=== PATIENT | male | born 1995 | race Caucasian/White ===

== ENCOUNTER 2017-09-09 16:56 | Emergency (ER) | payer OTHER ==
[~2017-09-09] VITALS: Ht 172.7 cm; Wt 66.9 kg
[2017-09-09 17:03] VITALS: TEMP 36.9; Ht 172.7 cm; Wt 66.9 kg
[2017-09-09] MEDS ORDERED: ONDANSETRON INJ 2 MG/ML 2 ML VIAL IV STA (17:13)
[2017-09-09] MEDS ORDERED: KETOROLAC TROMETHAMINE 30 MG/ML VIAL IV STA (17:13)
[2017-09-09] MEDS ORDERED: SODIUM CHLORIDE 0.9% 1000ML 2,000 ML IV STA (17:13)
--- NOTE | 2017-09-09 17:46 | DIAGNOSTIC IMAGING REPORT ---
CHEST ONE VIEW PORTABLE HISTORY: 22 years-old Male cough acute cough COMPARISON: None available TECHNIQUE: Portable upright AP view of the chest FINDINGS: Cardiomediastinal and hilar silhouettes are within normal limits. No pneumothorax, pleural effusion, focal airspace consolidation or overt pulmonary edema. Bones of the chest are grossly intact. IMPRESSION: No acute cardiopulmonary process. The above report was generated using voice recognition software. It may contain grammatical, syntax or spelling errors. Electronically signed by: Tunde Mcpherson M.D. 09/09/2017 5:45 PM Dictated Date/Time: 09/09/2017 5:44 PM
[2017-09-09 17:56] LABS: BASO % 0.6 %; BASO ABS # 0.05 K/uL (0-0.2); COMPLETE YES; EOS % 3.8 %; HEMATOCRIT 42.8 % (42-52); IG% 0.1 %; LYMPH % 30.8 %; LYMPH ABS # 2.68 K/uL (1.2-3.4); MEAN CELL VOLUME 86.5 fL (80-100); MEAN CORPUSCULAR HEMOGLOBIN 30.3 pg (25-34); MEAN PLATELET VOLUME 10.6 fL (7.4-10.4); NEUT % 57.7 %; PLATELET COUNT 305 K/uL (130-400); RED BLOOD COUNT 4.95 M/uL (4.7-6.1)
[2017-09-09 18:15] LABS: BUN/CREATININE RATIO 7.2 (10-20); CALCIUM 9.7 mg/dl (8.5-10.1); CREATININE 0.97 mg/dl (0.60-1.40); POTASSIUM 3.7 mmol/L (3.5-5.1)
[2017-09-09 19:09] LABS: URINE APPEARANCE CLEAR (CLEAR); URINE BILIRUBIN NEG (NEG); URINE COLOR YELLOW; URINE EPITHELIAL CELL AUTO 0-5 /lpf (0-5); URINE NITRITE NEG (NEG); URINE SPECIFIC GRAVITY 1.017 (1.000-1.030); UROBILINOGEN NEG (NEG); ZZUR CULT IF INDIC CLEAN CATCH NO
[2017-09-09 19:33] LABS: MANUAL MICROSCOPIC REQUIRED? NO; REVIEW REQ? NO
[2017-09-09] MEDS ORDERED: ONDA4TAB65 PO (19:40)
[2017-09-09] MEDS ORDERED: FAMO20TA11 PO (19:43)
[2017-09-09 19:47] VITALS: BP 113/73; PULSE 60; O2SAT 100
--- NOTE | 2017-09-09 21:58 | EMERGENCY ROOM VISIT NOTE ---
History Report prepared by Yuriibjoselito: Víctor Triana Under the Supervision of: Dr. Kareem Keller D.O. First contact with patient: 17:06 Chief Complaint: FEVER Stated Complaint: CHILLS, FEVER, VOMITING, COLD History of Present Illness The patient is a 22 year old male who presents to the Emergency Room with complaints of persistent generalized illness beginning three days ago. He also complains of vomiting, chills, sinus congestion, sore throat, cough and fevers. He states that he has a history of problems with stomach ulcers, and has noticed flecks of blood in his vomit. The patient's symptoms began with a cough. His cough produces a yellow sputum. He states that his vomiting always occurs with coughing fits. The patient states that he has vomited three times total, twice in the mornings and once after a coughing fit. He states that he has had a lot of post-nasal drip. He denies any urinary symptoms. Source of History: patient Onset: Three days ago Position: other (generalized) Quality: other (illness) Timing: other (persistent) Associated Symptoms: + fevers, + chills, + cough, + vomiting, No urinary symptoms Note: Additional symptoms: sinus congestion. Review of Systems See HPI for pertinent positives & negatives. A total of 10 systems reviewed and were otherwise negative. Past Medical & Surgical Medical Problems: (1) No Known Active Medical Problems (2) Stomach ulcer Family History No pertinent family history stated. Social History Smoking Status: Current Every Day Smoker Occupation Status: [employer] student Current/Historical Medications Scheduled Famotidine (Pepcid), 20 MG PO DAILY Scheduled PRN Ondansetron Hcl (Zofran), 4 MG PO TID PRN for Nausea Allergies Coded Allergies: No Known Allergies (Unverified , 08/22/16) Physical Exam Vital Signs Date Time Temp Pulse Resp B/P (MAP) Pulse Ox O2 Delivery O2 Flow Rate FiO2 09/09/17 19:47 60 20 113/73 100 09/09/17 18:32 57 18 99/66 100 Room Air 09/09/17 17:03 36.9 127 18 125/78 100 Room Air Physical Exam GENERAL: Sitting up in bed, alert, disheveled, slightly ill appearing. EYE EXAM: normal conjunctiva. OROPHARYNX: no exudate, no erythema, lips, buccal mucosa, and tongue normal and mucous membranes are moist EARS: Bilateral cerumen impactions. NECK: supple, no nuchal rigidity, no adenopathy, non-tender. Negative Brudzinski. LUNGS: Clear to auscultation. Normal chest wall mechanics HEART: no murmurs, S1 normal and S2 normal ABDOMEN: abdomen soft, non-tender, normo-active bowel sounds, no masses, no rebound or guarding. BACK: Back is symmetrical on inspection and there is no deformity, no midline tenderness, no CVA tenderness. SKIN: no rashes and no bruising UPPER EXTREMITIES: upper extremities are grossly normal. LOWER EXTREMITIES: No pitting edema. NEURO EXAM: Normal sensorium, cranial nerves II-XII grossly intact, normal speech, no gross weakness of arms, no gross weakness of legs. Medical Decision & Procedures ER Provider Diagnostic Interpretation: Radiology results as stated below per my review and the radiologist's interpretation: CHEST ONE VIEW PORTABLE FINDINGS: Cardiomediastinal and hilar silhouettes are within normal limits. No pneumothorax, pleural effusion, focal airspace consolidation or overt pulmonary edema. Bones of the chest are grossly intact. IMPRESSION: No acute cardiopulmonary process. The above report was generated using voice recognition software. It may contain grammatical, syntax or spelling errors. Electronically signed by: Tunde Mcpherson M.D. 09/09/2017 5:45 PM Laboratory Results 09/09/17 17:28 Red Blood Count 4.95, Mean Corpuscular Volume 86.5, Mean Corpuscular Hemoglobin 30.3, Mean Corpuscular Hemoglobin Concent 35.0, Mean Platelet Volume 10.6, Neutrophils (%) (Auto) 57.7, Lymphocytes (%) (Auto) 30.8, Monocytes (%) (Auto) 7.0, Eosinophils (%) (Auto) 3.8, Basophils (%) (Auto) 0.6, Neutrophils # (Auto) 5.02, Lymphocytes # (Auto) 2.68, Monocytes # (Auto) 0.61, Eosinophils # (Auto) 0.33, Basophils # (Auto) 0.05 09/09/17 17:28 Test 09/09/17 17:28 09/09/17 17:29 09/09/17 18:30 White Blood Count 8.70 K/uL (4.8-10.8) Red Blood Count 4.95 M/uL (4.7-6.1) Hemoglobin 15.0 g/dL (14.0-18.0) Hematocrit 42.8 % (42-52) Mean Corpuscular Volume 86.5 fL (80-100) Mean Corpuscular Hemoglobin 30.3 pg (25-34) Mean Corpuscular Hemoglobin Concent 35.0 g/dl (32-36) Platelet Count 305 K/uL (130-400) Mean Platelet Volume 10.6 fL (7.4-10.4) Neutrophils (%) (Auto) 57.7 % Lymphocytes (%) (Auto) 30.8 % Monocytes (%) (Auto) 7.0 % Eosinophils (%) (Auto) 3.8 % Basophils (%) (Auto) 0.6 % Neutrophils # (Auto) 5.02 K/uL (1.4-6.5) Lymphocytes # (Auto) 2.68 K/uL (1.2-3.4) Monocytes # (Auto) 0.61 K/uL (0.11-0.59) Eosinophils # (Auto) 0.33 K/uL (0-0.5) Basophils # (Auto) 0.05 K/uL (0-0.2) RDW Standard Deviation 39.9 fL (36.4-46.3) RDW Coefficient of Variation 12.6 % (11.5-14.5) Immature Granulocyte % (Auto) 0.1 % Immature Granulocyte # (Auto) 0.01 K/uL (0.00-0.02) Anion Gap 9.0 mmol/L (3-11) Est Creatinine Clear Calc Drug Dose 114.0 ml/min Estimated GFR () 128.8 Estimated GFR (Non- 111.1 BUN/Creatinine Ratio 7.2 (10-20) Calcium Level 9.7 mg/dl (8.5-10.1) Total Bilirubin 0.5 mg/dl (0.2-1) Direct Bilirubin 0.1 mg/dl (0-0.2) Aspartate Amino Transf (AST/SGOT) 11 U/L (15-37) Alanine Aminotransferase (ALT/SGPT) 11 U/L (12-78) Alkaline Phosphatase 41 U/L (45-117) Total Protein 8.3 gm/dl (6.4-8.2) Albumin 4.7 gm/dl (3.4-5.0) Lipase 95 U/L (73-393) Influenza Type A Antigen Neg for Influ A (NEG) Influenza Type B Antigen Neg for Influ B (NEG) Urine Color YELLOW Urine Appearance CLEAR (CLEAR) Urine pH 7.0 (4.5-7.5) Urine Specific [place] 1.017 (1.000-1.030) Urine Protein NEG (NEG) Urine Glucose (UA) NEG (NEG) Urine Ketones NEG (NEG) Urine Occult Blood NEG (NEG) Urine Nitrite NEG (NEG) Urine Bilirubin NEG (NEG) Urine Urobilinogen NEG (NEG) Urine Leukocyte Esterase NEG (NEG) Urine WBC (Auto) 0 /hpf (0-5) Urine RBC (Auto) 0-4 /hpf (0-4) Urine Hyaline Casts (Auto) 1-5 /lpf (0-5) Urine Epithelial Cells (Auto) 0-5 /lpf (0-5) Urine Bacteria (Auto) NEG (NEG) Laboratory results per my review. Medications Administered Medications (Trade) Dose Ordered Sig/Nerissa Route Start Time Stop Time Status Last Admin Dose Admin Sodium Chloride 2,000 ml @ 999 mls/hr Q2H1M STAT IV 09/09/17 17:13 09/09/17 19:13 DC 09/09/17 17:32 999 MLS/HR Ondansetron HCl (Zofran Inj) 4 mg NOW STAT IV 09/09/17 17:13 09/09/17 17:15 DC 09/09/17 17:32 4 MG Ketorolac Tromethamine (Toradol Inj) 30 mg NOW STAT IV 09/09/17 17:13 09/09/17 17:15 DC 09/09/17 17:32 30 MG ED Course ED COURSE: Vital signs were reviewed and showed tachycardia The patients medical record was reviewed The above diagnostic studies were performed and reviewed. ED treatments and interventions as stated above. 1707: The patient was evaluated in room C5. A complete history and physical examination was performed. 1713: Ordered Toradol Inj 30 mg IV, Zofran Inj 4 mg IV, Sodium Chloride 2000 ml @ 999 mls/hr IV. 5: Upon reevaluation, the patient is resting comfortably. I discussed my findings with the patient and he understands and agrees with the treatment plan. Based on the patients age, coexisting illnesses, exam and lab findings the decision to treat as an outpatient was made. The patient remained stable while under my care. The patient appeared well at the time of discharge. Medical Decision Differential diagnosis: Etiologies such as viral syndrome, otitis, pharyngitis, pneumonia, influenza, meningitis, urinary tract infection, sepsis, bacteremia, as well as others were entertained. Patient is a 22-year-old male who presents to ER for vomiting for a total of 3 times. Yesterday and this morning he threw up when he woke up. Today in the afternoon he vomited after coughing fit. He notes that there was some flecks of blood in this. He complains of congestion and a cough. He also admits to a sore throat. Rapid strep was negative. Symptoms do appear to be consistent with a viral URI. CBC along with BMP, LFTs, bilirubin and lipase were unremarkable. His exam was otherwise unremarkable. His x-ray shows no focal infiltrate. His abdominal exam is completely benign. Patient was updated at bedside. He was discharged with Pepcid and Zofran to follow-up with his PCP. Discussed with Pt concerning signs and symptoms to watch out for. Pt was instructed to follow up with their PCP and discussed with the patient their option to return to the ED at anytime for persistent or worsening symptoms. The appropriate anticipatory guidance and out-patient management, including indications for return to the emergency department, were explained at length to the patient and understood. Medication Reconcilliation Current Medication List: was personally reviewed by me Blood Pressure Screening Patient's blood pressure: Normal blood pressure Blood pressure disposition: Did not require urgent referral Impression Primary Impression: Viral URI with cough Additional Impression: Vomiting Scribe Attestation The scribe's documentation has been prepared under my direction and personally reviewed by me in its entirety. I confirm that the note above accurately reflects all work, treatment, procedures, and medical decision making performed by me. Departure Information Dispostion Home / Self-Care Prescriptions Famotidine (Pepcid) 20 Mg Tab 20 MG PO DAILY, #30 TAB Prov: Kareem Keller, DO 09/09/17 Ondansetron Hcl (ZOFRAN) 4 Mg Tab 4 MG PO TID Y for Nausea, #20 TAB Prov: Kareem Keller, DO 09/09/17 Referrals No Doctor, Assigned (PCP) Forms HOME CARE DOCUMENTATION FORM, IMPORTANT VISIT INFORMATION Patient Instructions ED Nausea Vomiting, ED URI Viral, My [facility] Additional Instructions Please follow up with your primary care doctor or if you are a student, [facility] with in the next 24 hours. Any worsening of your symptoms, please return to the ED immediately. This includes any fevers greater than 100.4, worsening pain, chest pain, shortness breath, persistent nausea, vomiting, unable to eat or drink, or any other concerning signs or symptoms from your standpoint. Please take Zofran as needed for nausea. Please take Pepcid as prescribed. Any increased blood in vomit, dark tarry stools, blood in your stool please return immediately to the ER. Problem Qualifiers Additional Impression: Vomiting Vomiting type: unspecified Vomiting Intractability: non-intractable Nausea presence: with nausea Qualified Codes: R11.2 - Nausea with vomiting, unspecified
== END 2017-09-09 19:52 | disposition home or self-care (01) ==
LOC: C.EDB 16:57 → C.EDC 19:52
DX: J06.9 Acute upper respiratory infection, unspecified (principal); K25.9 Gastric ulcer, unspecified as acute or chronic, without hemorrhage or perforation; F17.200 Nicotine dependence, unspecified, uncomplicated

== ENCOUNTER 2018-02-27 21:07 | Emergency (ER) | payer OTHER ==
[~2018-02-27] VITALS: Ht 172.7 cm; Wt 70.9 kg
[~2018-02-27 21:07] MED LIST: FAMO20TA11 PO
[2018-02-27 21:15] VITALS: TEMP 36.7; Ht 172.7 cm; Wt 70.9 kg
[2018-02-27] MEDS ORDERED: KETOROLAC TROMETHAMINE 30 MG/ML VIAL IV STA (21:43)
[2018-02-27] MEDS ORDERED: ACETAMINOPHEN 500 MG TAB PO STA (21:43)
[2018-02-27] MEDS ORDERED: ONDANSETRON INJ 2 MG/ML 2 ML VIAL IV STA (21:43)
[2018-02-27] MEDS ORDERED: SODIUM CHLORIDE 0.9% 1000ML 1,000 ML IV STA (21:43)
[2018-02-27 22:14] LABS: BASO % 0.4 %; BASO ABS # 0.03 K/uL (0-0.2); EOS % 4.8 %; EOS ABS # 0.35 K/uL (0-0.5); HEMOGLOBIN 15.2 g/dL (14.0-18.0); IG# 0.02 K/uL (0.00-0.02); LYMPH % 32.1 %; LYMPH ABS # 2.32 K/uL (1.2-3.4); MEAN CELL VOLUME 86.3 fL (80-100); MEAN CORPUSCULAR HEMOGLOBIN 30.5 pg (25-34); MEAN CORPUSCULAR HGB CONC 35.3 g/dl (32-36); MEAN PLATELET VOLUME 9.9 fL (7.4-10.4); MONO % 7.3 %; MONO ABS # 0.53 K/uL (0.11-0.59); NEUT % 55.1 %; NEUT ABS # 3.97 K/uL (1.4-6.5); PLATELET COUNT 296 K/uL (130-400); RED CELL DISTRIBUTION WIDTH CV 13.3 % (11.5-14.5); RED CELL DISTRIBUTION WIDTH SD 41.8 fL (36.4-46.3); WHITE BLOOD COUNT 7.22 K/uL (4.8-10.8)
[2018-02-27 22:23] LABS: ALBUMIN 4.8 gm/dl (3.4-5.0); CALCIUM 9.2 mg/dl (8.5-10.1); CREATININE 1.05 mg/dl (0.60-1.40); POTASSIUM 3.5 mmol/L (3.5-5.1)
[2018-02-27 22:25] LABS: TOTAL PROTEIN 8.5 gm/dl (6.4-8.2)
--- NOTE | 2018-02-27 22:46 | DIAGNOSTIC IMAGING REPORT ---
CHEST AND ABDOMEN 2 VIEWS HISTORY: Generalized abdominal pain. COMPARISON: Chest 09/09/2017. FINDINGS: The lungs are clear. The cardiomediastinal silhouette is within normal limits. There is no pneumoperitoneum or pneumatosis. The bowel gas pattern is unremarkable. No evidence for bowel obstruction. No renal or ureteral calculi. Calcifications in the deep pelvis are consistent with phleboliths. Small amount of well-formed stool seen throughout the colon.. IMPRESSION: No acute cardiopulmonary process. No evidence for bowel obstruction. Electronically signed by: Corey Valdez M.D. 02/27/2018 10:45 PM Dictated Date/Time: 02/27/2018 10:43 PM
--- NOTE | 2018-02-27 23:17 | EMERGENCY ROOM VISIT NOTE ---
History Report prepared by Monse: Tangela Smith Under the Supervision of: Dr. Rolando Hoffman M.D. First contact with patient: 21:20 Chief Complaint: ABDOMINAL PAIN Stated Complaint: LEFT ABDOMEN/CHEST PAIN (ON TOUCH) History of Present Illness The patient is a 22 year old male with no past medical history who presents to the ED with a cc of worsening abdominal pain beginning this morning. The patient states that he woke up with the pain and it is sharp. He notes that it is worse when he walks and when he takes a deep breath. Positive pain radiating to his back and long traveling a month ago. The patient states that he went to [place] and then [place] the weekend after. Negative coughing up blood, nausea, vomiting, urinary symptoms, diarrhea, leg swelling, use of drugs, taking anything for pain, and history of DVT or PE. Source of History: patient Onset: this morning Position: abdomen Quality: sharp Timing: worsening Modifying Factors (Worsening): breathing (deep), other (walking) Associated Symptoms: + back pain, No nausea, No vomiting, No diarrhea, No urinary symptoms Note: The patient denies coughing up blood and leg swelling. Review of Systems See HPI for pertinent positives and negatives. A total of ten systems were reviewed and were otherwise negative. Past Medical & Surgical Medical Problems: (1) No Known Active Medical Problems (2) Stomach ulcer Family History Patient reports no known family medical history. Social History Smoking Status: Former Smoker Alcohol Use: occasionally Drug Use: none Marital Status: in relationship Housing Status: lives with significant other Occupation Status: [employer] student Current/Historical Medications No Active Prescriptions or Reported Meds Allergies Coded Allergies: No Known Allergies (Unverified , 08/22/16) Physical Exam Vital Signs Date Time Temp Pulse Resp B/P (MAP) Pulse Ox O2 Delivery O2 Flow Rate FiO2 02/28/18 00:09 75 16 105/67 99 Room Air 02/27/18 22:44 74 16 128/72 100 Room Air 02/27/18 21:15 36.7 84 16 100 Room Air Physical Exam GENERAL: Awake, alert, well-appearing, NAD HENT: Normocephalic, atraumatic. EYES: Normal conjunctiva. Sclera non-icteric. NECK: Supple. No nuchal rigidity. FROM. RESPIRATORY: CTAB, no rhonchi, wheezing, crackles CARDIAC: RRR, no MRG ABDOMEN: Soft, nondistended, BS+, some LUQ pain. No RUQ or RLQ pain. MSK: Reproducible left anterior lower chest pain, no LE edema, no CVA tenderness. NEURO: GCS 15, CN 2-12 intact, moves all 4s on command SKIN: No rash or jaundice noted. Medical Decision & Procedures ER Provider Diagnostic Interpretation: Radiology results as stated below per my review and radiologist interpretation: CHEST AND ABDOMEN 2 VIEWS HISTORY: Generalized abdominal pain. COMPARISON: Chest 09/09/2017. FINDINGS: The lungs are clear. The cardiomediastinal silhouette is within normal limits. There is no pneumoperitoneum or pneumatosis. The bowel gas pattern is unremarkable. No evidence for bowel obstruction. No renal or ureteral calculi. Calcifications in the deep pelvis are consistent with phleboliths. Small amount of well-formed stool seen throughout the colon.. IMPRESSION: No acute cardiopulmonary process. No evidence for bowel obstruction. Electronically signed by: Corey Valdez M.D. 02/27/2018 10:45 PM Dictated Date/Time: 02/27/2018 10:43 PM Laboratory Results 02/27/18 21:25 Red Blood Count 4.98, Mean Corpuscular Volume 86.3, Mean Corpuscular Hemoglobin 30.5, Mean Corpuscular Hemoglobin Concent 35.3, Mean Platelet Volume 9.9, Neutrophils (%) (Auto) 55.1, Lymphocytes (%) (Auto) 32.1, Monocytes (%) (Auto) 7.3, Eosinophils (%) (Auto) 4.8, Basophils (%) (Auto) 0.4, Neutrophils # (Auto) 3.97, Lymphocytes # (Auto) 2.32, Monocytes # (Auto) 0.53, Eosinophils # (Auto) 0.35, Basophils # (Auto) 0.03 02/27/18 21:25 Test 02/27/18 21:25 02/27/18 23:00 White Blood Count 7.22 K/uL (4.8-10.8) Red Blood Count 4.98 M/uL (4.7-6.1) Hemoglobin 15.2 g/dL (14.0-18.0) Hematocrit 43.0 % (42-52) Mean Corpuscular Volume 86.3 fL (80-100) Mean Corpuscular Hemoglobin 30.5 pg (25-34) Mean Corpuscular Hemoglobin Concent 35.3 g/dl (32-36) Platelet Count 296 K/uL (130-400) Mean Platelet Volume 9.9 fL (7.4-10.4) Neutrophils (%) (Auto) 55.1 % Lymphocytes (%) (Auto) 32.1 % Monocytes (%) (Auto) 7.3 % Eosinophils (%) (Auto) 4.8 % Basophils (%) (Auto) 0.4 % Neutrophils # (Auto) 3.97 K/uL (1.4-6.5) Lymphocytes # (Auto) 2.32 K/uL (1.2-3.4) Monocytes # (Auto) 0.53 K/uL (0.11-0.59) Eosinophils # (Auto) 0.35 K/uL (0-0.5) Basophils # (Auto) 0.03 K/uL (0-0.2) RDW Standard Deviation 41.8 fL (36.4-46.3) RDW Coefficient of Variation 13.3 % (11.5-14.5) Immature Granulocyte % (Auto) 0.3 % Immature Granulocyte # (Auto) 0.02 K/uL (0.00-0.02) Anion Gap 6.0 mmol/L (3-11) Est Creatinine Clear Calc Drug Dose 107.6 ml/min Estimated GFR () 117.0 Estimated GFR (Non- 101.0 BUN/Creatinine Ratio 12.9 (10-20) Calcium Level 9.2 mg/dl (8.5-10.1) Total Bilirubin 0.7 mg/dl (0.2-1) Direct Bilirubin 0.2 mg/dl (0-0.2) Aspartate Amino Transf (AST/SGOT) 15 U/L (15-37) Alanine Aminotransferase (ALT/SGPT) 26 U/L (12-78) Alkaline Phosphatase 48 U/L (45-117) Total Protein 8.5 gm/dl (6.4-8.2) Albumin 4.8 gm/dl (3.4-5.0) Lipase 85 U/L (73-393) Urine Color YELLOW Urine Appearance CLEAR (CLEAR) Urine pH 5.0 (4.5-7.5) Urine Specific [place] 1.018 (1.000-1.030) Urine Protein NEG (NEG) Urine Glucose (UA) NEG (NEG) Urine Ketones NEG (NEG) Urine Occult Blood NEG (NEG) Urine Nitrite NEG (NEG) Urine Bilirubin NEG (NEG) Urine Urobilinogen NEG (NEG) Urine Leukocyte Esterase TRACE (NEG) Urine WBC (Auto) 1-5 /hpf (0-5) Urine RBC (Auto) 0-4 /hpf (0-4) Urine Hyaline Casts (Auto) 0 /lpf (0-5) Urine Epithelial Cells (Auto) 0-5 /lpf (0-5) Urine Bacteria (Auto) NEG (NEG) Laboratory results reviewed by me Medications Administered Medications (Trade) Dose Ordered Sig/Nerissa Route Start Time Stop Time Status Last Admin Dose Admin Sodium Chloride 1,000 ml @ 999 mls/hr Q1H1M STAT IV 02/27/18 21:43 02/27/18 22:43 DC 02/27/18 21:53 999 MLS/HR Ondansetron HCl (Zofran Inj) 4 mg NOW STAT IV 02/27/18 21:43 02/27/18 21:44 DC 02/27/18 21:53 4 MG Ketorolac Tromethamine (Toradol Inj) 30 mg NOW STAT IV 02/27/18 21:43 02/27/18 21:44 DC 02/27/18 21:54 30 MG Acetaminophen (Tylenol Tab) 1,000 mg NOW STAT PO 02/27/18 21:43 02/27/18 21:44 DC 02/27/18 21:53 1,000 MG Procedure Bedside ultrasound shows good cardiac squeeze. No pericardial effusion. Signs of RV strain. ECG Per My Interpretation Indication: chest pain Rate (beats per minute): 76 Rhythm: normal sinus Findings: other (normal intervals, normal axis, no STS changes or TWI) ED Course 2137: The patient was evaluated in room C10. A complete history and physical exam was performed. 7: I went to reevaluate the patient, but he was in the restroom. 0: I reevaluated the patient and he has a little discomfort, but he feels better. 8: I reevaluated that patient and he still has pain. I did a bedside ultrasound. He has good cardiac squeeze. No pericardial effusion. Signs of RV strain. Discussed results and discharge instructions: He verbalized understanding and agreement. The patient is ready for discharge. Medical Decision Nursing notes reviewed. Ancillary studies and prior records reviewed. Differential diagnosis: Etiologies such as cardiac ischemia, aortic dissection, pulmonary embolism, pneumonia, pneumothorax, musculoskeletal, infections, pericarditis, myocarditis , esophageal rupture, gastrointestinal, as well as others were entertained. Patient was seen and evaluated the bedside. Patient was complaining of some left-sided chest discomfort. Patient states that it is reproducible and is worse with palpation. Patient denies any trauma. Patient denies any infectious symptoms. Patient has [place] been [place] since spring which point he visited [place] in [place]. Patient denies any lower extremity swelling, prior history of DVT or PE, hemoptysis, fracture, hospitalization, or history of cancer. Patient does have reproducible chest wall discomfort. Patient has no crepitus and no areas of ecchymosis. Patient did blood work completed, EKG, chest x-ray and was given pain control. Patient's EKG does not show any ischemic changes in patient's EKG also does not show any evidence of right heart strain. Patient's blood work is completely unremarkable. I did discuss these results with the patient. The patient's urinalysis is also negative. I believe less likely ACS. This may be more of an element of costochondritis. Patient is PE RC of 0 less likely PE. I did perform a bedside ultrasound which showed no pericardial effusion no evidence of right heart strain, and showed good cardiac squeeze. 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 I believe the patient is suitable for outpatient follow-up and treatment at this time. Patient was told return if any worsening symptoms or any prolonged symptoms to return here or to follow-up at [facility]. Patient was given strict follow-up, discharge, and return precautions. All questions were answered. Patient was deemed suitable for outpatient follow-up at this time. Patient agreed with the plan of care and was safely discharged home. Medication Reconcilliation Current Medication List: was personally reviewed by me Blood Pressure Screening Patient's blood pressure: Normal blood pressure Blood pressure disposition: Did not require urgent referral Impression Primary Impression: Costochondritis, acute Scribe Attestation The scribe's documentation has been prepared under my direction and personally reviewed by me in its entirety. I confirm that the note above accurately reflects all work, treatment, procedures, and medical decision making performed by me. Departure Information Dispostion Home / Self-Care Prescriptions No Active Prescriptions or Reported Meds Referrals [facility] (PCP) Forms HOME CARE DOCUMENTATION FORM, IMPORTANT VISIT INFORMATION Patient Instructions ED Chest Pain Costochondrjesu, My [facility] Additional Instructions Please return to the emergency department if you have worsening or recurrent symptoms not amenable to at-home treatment. Please call for a follow-up appointment with her primary care physician. Please take your medications as prescribed. If you have other concerns and/or complaints please feel free to also call your primary care physician's office or return the ED for further evaluation, management, and treatment. You may take 800 mg Ibuprofen every 6 hours as needed for pain/fever with food. You may take tylenol 1000 mg every 6 hours as needed for pain. You may take motrin and tylenol separately or at the same time. Take your medications as prescribed. You have been examined and treated today on an emergency basis only. This is not a substitute for, or an effort to provide, complete comprehensive medical care. It is impossible to recognize and treat all injuries or illnesses in a single emergency department visit. It is therefore important that you follow up closely with [facility], your PCP, and/or your specialist(s). Call as soon as possible for an appointment. Thank you for your time and consideration. I look forward to speaking with you again soon. Please don't hesitate to call us if you have any questions.
[2018-02-28 00:09] VITALS: BP 105/67; PULSE 75; O2SAT 99
== END 2018-02-28 00:28 | disposition home or self-care (01) ==
LOC: C.EDB 21:09 → C.EDC 02-28 00:28
DX: M94.0 Chondrocostal junction syndrome [Tietze] (principal); Z87.891 Personal history of nicotine dependence